=== PATIENT | male | born 1945 | race Caucasian/White ===

== ENCOUNTER 2017-05-03 12:02 | Emergency (ER) | payer OTHER ==
[~2017-05-03] VITALS: Ht 172.7 cm; Wt 138.3 kg
[~2017-05-03 12:02] MED LIST: ALENDRONATE SOD70 MG PO; ALLOPURINOL 30300 M2 PO; ALLOPURINOL 30300 M3 PO; AMLODIPINE BESYL5 MG PO; AMOXICILLIN 50500 M1; AMOXICILLIN 50500 MG PO; ASPIRIN EC325 M1; ASPIRIN EC81 M1 PO; COUMADIN 2 MG TA2 M1 PO; COUMADIN 3 MG TA3 MG PO; FOLIC ACID1 MG PO; FUROSEMIDE 80 M80 M1 PO; LEVOTHYROXIN0.125 M1 PO; LEVOTHYROXINE0.05 MG PO; LOTENSIN20 MG PO; LOVASTAT40 PO; LOVASTATIN 20 M20 MG PO; METHOTREXATE 22.5 MG PO; NEURONTIN 300300 M1 PO; POTASSIUM CHLO20 ME1 PO; PREDNISONE 5 MG5 M1 PO; PROPAFENONE 15150 MG PO; REMICADE 1100 MG/VIA IV; TOPROL XL25 MG PO; VICODIN PO; VITCB500GO PO; [UNRECOGNIZED DRUG - OTHER]
[2017-05-03 12:33] LABS: ABSOLUTE LYMPHOCYTES 1.2 thou/uL (0.8-5.3); ABSOLUTE MONOCYTES 0.4 thou/uL (0.0-1.2); ABSOLUTE NEUTROPHILS 5.5 thou/uL (1.6-8.1); BASOPHILS 0.6 %; EOSINOPHILS 0.4 %; HEMATOCRIT 40.3 % (42.0-52.0); HEMOGLOBIN 13.4 gm/dL (14.0-18.0); LYMPHOCYTES 16.5 %; MCH 32.4 pg (26.0-34.0); MCHC 33.2 g/dL (28.0-37.0); MCV 97.4 fL (80.0-100.0); MONOCYTES 5.3 %; MPV 8.2 fl. (7.2-11.1); NUCLEATED RBCS 0 /100WBC; PLATELET COUNT* 179 thou/uL (150-400); POLYS 77.2 %; RBC 4.14 mil/uL (4.50-6.00); RDW-CV 16.5 % (10.5-14.5); WBC 7.1 thou/uL (4.0-11.0)
[2017-05-03 12:42] LABS: ANION GAP 5 mmol/L (7-16); BUN 23 mg/dL (7-18); CHLORIDE 102 mmol/L (98-107); CO2 35 mmol/L (21-32); CREATININE 1.7 mg/dL (0.6-1.3); GLUCOSE 153 mg/dL (70-99); POTASSIUM 3.5 mmol/L (3.5-5.1); SODIUM 142 mmol/L (136-145)
[2017-05-03] MEDS ORDERED: ALLOPURINOL 10100 M1 PO (12:42)
[2017-05-03] MEDS ORDERED: COUMADIN 2 MG TA2 M1 PO (12:44)
[2017-05-03 12:45] LABS: APTT 49.3 Seconds (25.0-31.3); INR 3.4; PROTIME 32.4 Seconds (9.20-11.50)
[2017-05-03] MEDS ORDERED: CALCITRATE200 MG PO (12:45)
[2017-05-03] MEDS ORDERED: REMICADE 1100 MG/VIA IV (12:46)
[2017-05-03] MEDS ORDERED: VITAMIN D3400 UNIT PO (12:47)
[2017-05-03] MEDS ORDERED: VITAMIN B-12500 MCG PO (12:48)
[2017-05-03] MEDS ORDERED: CENTRUM SILVER1 EAC4 PO (12:48)
[2017-05-03 12:52] LABS: ALBUMIN 3.5 g/dL (3.4-5.0); ALKALINE PHOSPHATASE 73 U/L (46-116); LIPASE 89 U/L (73-393); NT-PRO BRAIN NAT PEPTIDE 441 pg/mL (<300); SGOT 24 U/L (15-37); SGPT 26 U/L (30-65); TOTAL BILIRUBIN 0.8 mg/dL (<0.1-1.0); TOTAL PROTEIN 7.5 g/dL (6.4-8.2); TROPONIN-I LEVEL <0.06 ng/mL (<0.06)
[2017-05-03 16:24] VITALS: BP 110/51
--- NOTE | 2017-05-03 17:46 | EKG ---
[place] [address] ELECTROCARDIOGRAM REPORT Name: KAMERON WALDEN Room: [facility]#: [id number] Admission: 05/03/17 Attend Phys: Discharge: 05/03/17 Date of : 45 Report #: [id number] THIS REPORT FOR: //name// [facility] ED Test Date: 2017-05-03 Test Time: 12:15:58 Pat Name: KAMERON WALDEN Department: Room: [facility] Gender: M Tax Examining Technician: Kristina FREED : 1945 Requested By: Rissa Florian Order Number: [id number] MD: Allan Ramsay Measurements Intervals [place] Rate: 111 P: DC: QRS: -9 QRSD: 110 T: 37 QT: 360 QTc: 489 Interpretive Statements Atrial fibrillation Premature ventricular complexes Low voltage, precordial leads Delayed R-wave progression Compared to ECG 06/28/2016 12:39:29 Ventricular premature complex(es) now present Low QRS voltage now present Electronically Signed On 05-03-2017 17:46:36 SENIOR INDUSTRIAL ENGINEER by Allan Ramsay [email or web address] <ELECTRONICALLY SIGNED> By: Allan Ramsay MD, FACC 05/03/17 1746 1215 1215 Allan Ramsay MD, FAC /EPI
== END 2017-05-03 16:25 | disposition home or self-care (01) ==
LOC: M.ERS 12:02 → M.TBA-ER 15:41 → M.ERS 16:25
PROVIDERS: Personal Emergency Response Attendant
DX: R53.1 Weakness (principal); I10 Essential (primary) hypertension; I25.2 Old myocardial infarction; I48.91 Unspecified atrial fibrillation; M06.9 Rheumatoid arthritis, unspecified; M19.90 Unspecified osteoarthritis, unspecified site